=== PATIENT | male | born 1985 | race Caucasian/White ===

== ENCOUNTER 2016-04-28 09:21 | Emergency (ER) | payer OTHER ==
[2016-04-28] MEDS ORDERED: DEXAMETHASONE 10 MG/ML VIAL PO STA (10:51)
[2016-04-28] MEDS ORDERED: cefTRIAXone 1 GM VIAL IM STA (10:51)
[2016-04-28] MEDS ORDERED: CHERRY SYRUP 10 ML UDC PO ONE (10:53)
[2016-04-28] MEDS ORDERED: LIDOCAINE-MPF 1% 5 ML VIAL ONE (10:53)
[2016-04-28] MEDS ORDERED: cefTRIAXone 1 GM VIAL ONE (10:53)
[2016-04-28] MEDS ORDERED: DEXAMETHASONE 10 MG/ML VIAL ONE (10:53)
== END 2016-04-28 11:22 | disposition home or self-care (01) ==
DX: J18.9 Pneumonia, unspecified organism (principal); H66.003 Acute suppurative otitis media without spontaneous rupture of ear drum, bilateral; R03.0 Elevated blood-pressure reading, without diagnosis of hypertension
CPT/HCPCS: 71020; 96372; 99283; 99284; A9270